=== PATIENT | female | born 1980 | race American Indian/Alaskan Native ===

== ENCOUNTER → 2018-07-31 14:00 | Outpatient (CLI) | payer SELFPAY | DX: Z23 Encounter for immunization (principal) | CPT/HCPCS: 90471; 90686 ==

== ENCOUNTER 2021-02-23 20:18 | Emergency (ER) | payer BC, SELFPAY ==
[2021-02-23 21:36] VITALS: BP 137/73; PULSE 66; RESP 20; TEMP 36.6; O2SAT 97
--- NOTE | 2021-02-23 21:40 | DI.RAD.S_ITS ---
PROCEDURE: XR ELBOW LT MIN 3V INDICATIONS: fall TECHNIQUE: 3 views of the elbow were acquired. COMPARISON: None. FINDINGS: Bones: No fractures or dislocations. No suspicious bony lesions. Soft tissues: No elbow joint effusion. No suspicious soft tissue calcifications. IMPRESSION: No fracture. No osseous lesion. If symptoms and/or clinical suspicion for pathology persists, further assessment with repeat radiographs (7-10 days) or advanced imaging (e.g. CT, MRI or bone scan) should be considered. Dictated by: Yvette Machado MD, PhD on 02/23/2021 at 21:55 Approved by: Yvette Machado MD, PhD on 02/23/2021 at 21:55
--- NOTE | 2021-02-23 23:36 | ED_ITS ---
HPI - Extremity Injury (Upper) General Chief Complaint: Extremity Injury, Upper Stated Complaint: LEFT ELBOW INJURY Time Seen by Provider: 02/23/21 23:35 Source: patient Mode of arrival: Ambulatory Limitations: no limitations History of Present Illness HPI narrative: Patient is a 40-year-old female who presents with left elbow pain after falling. She was sitting in the chair she fell over and hurt her elbow. She initially had some tingling in her hand but that has since improved. She previously had a hairline fracture in that elbow and is worried it might be broken. No other injury she did not hit her head. complaint: injury to: left and elbow Related Data Home Medications Medication Instructions Recorded Confirmed albuterol sulfate [Ventolin HFA] #0 12/12/17 prednisone #0 12/12/17 Review of Systems Review of Systems Narrative: GENERAL: Denies chills,fever HEENT: Denies throat pain RESPIRATORY: Denies dyspnea, cough, wheezing CARDIOVASCULAR: Denies chest pain, palpitations GASTROINTESTINAL: Denies nausea, vomiting MUSCULOSKELETAL: See HPI SKIN: No rash, no laceration, no pruritus NEUROLOGIC: Denies weakness, dizziness, headache, numbness 8 point review of systems is negative except for those stated above and HPI Exam Initial Vital Signs Initial Vital Signs: Vital Signs Temperature 97.9 F 02/23/21 21:36 Pulse Rate 66 02/23/21 21:36 Respiratory Rate 20 02/23/21 21:36 Blood Pressure 137/73 02/23/21 21:36 Pulse Oximetry 97 02/23/21 21:36 GENERAL: Well-appearing, well-nourished and in no acute distress. CARDIOVASCULAR: peripheral pulses in tact, cap refill <2 sec RESPIRATORY: No respiratory distress, speaks in full sentences without difficul ty EXTREMITIES: Normal range of motion, no clubbing or edema. Neurovascularly intact Left upper extremity no obvious bony deformity no pain on the left than on able to flex extend supinate and pronate. NEUROLOGICAL: Cranial nerves II through XII grossly intact. Normal gait and speech. SKIN: Warm, dry, no petechiae, no rashes or lesions. Course Orders Ordered: ED Orders 02/23/21 21:40 XR elbow LT min 3V Stat Vital Signs Vital signs: Vital Signs - 8 hr 02/23/21 21:36 Temperature 97.9 F Pulse Rate 66 Respiratory Rate 20 Blood Pressure 137/73 Pulse Oximetry 97 MDM - Extremity Injury (Upper) Imaging Data Extremity x-ray #1: Radiologist's Impression: PROCEDURE: XR ELBOW LT MIN 3V INDICATIONS: fall TECHNIQUE: 3 views of the elbow were acquired. COMPARISON: None. FINDINGS: Bones: No fractures or dislocations. No suspicious bony lesions. Soft tissues: No elbow joint effusion. No suspicious soft tissue calcifications. IMPRESSION: No fracture. No osseous lesion. If symptoms and/or clinical suspicion for pathology persists, further assessment with repeat radiographs (7-10 days) or advanced imaging (e.g. CT, MRI or bone scan) should be considered. Dictated by: Yvette Machado MD, PhD on 02/23/2021 at 21:55 Approved by: Yvette Machado MD, PhD on 02/23/2021 at 21:55 Discharge Plan Departure Patient Disposition: Home Clinical Impression: Left elbow contusion Instructions: DI for Elbow Pain Activity Restrictions/Additional Instructions: *You have been diagnosed with left elbow contusion *What to do: X-ray is negative at this time. Elevate ice if needed *Continue to take medications as directed Ibuprofen 600 mg every 6 hours if needed for [id number] pain *Follow up with your primary care provider in 2-3 days *Return to ER if you should have increasing pain numbness tingling or weakness or any new, worsening or concerning symptoms Prescriptions: No Action prednisone 20 MG tablet Qty: 0 RF: 0 albuterol sulfate [Ventolin HFA] 90 MCG/PUFF HFA aerosol inhaler Qty: 0 RF: 0
== END 2021-02-23 23:48 | disposition home or self-care (01) ==
PROVIDERS: Emergency Provider Emergency Medicine
DX: S50.02XA Contusion of left elbow, initial encounter (principal); W19.XXXA Unspecified fall, initial encounter
CPT/HCPCS: 73080; 99281; 99283

== ENCOUNTER → 2023-05-30 12:28 | Outpatient (CLI) | payer MEDICAID, SELFPAY | PROVIDERS: Visit Provider Nurse Practitioner Family | DX: R30.0 Dysuria (principal) | CPT/HCPCS: 81002; 87086 ==

== ENCOUNTER → 2023-10-15 14:05 | Outpatient (CLI) | payer MEDICAID, SELFPAY ==
[2023-10-15 14:12] LABS: Urine Volume 10mL (spun)
[2023-10-15 15:20] LABS: Appearance Urine UA CLEAR; Bilirubin Urine UA NEGATIVE (NEGATIVE); Color Urine UA YELLOW; Glucose Urine UA NEGATIVE (Negative); Ketones Urine UA NEGATIVE (NEGATIVE); Leukocyte Esterase Urine UA NEGATIVE (NEGATIVE); Nitrite Urine UA NEGATIVE (Negative); Occult Blood Urine UA TRACE-INTACT (Negative); Protein Urine UA NEGATIVE (Negative); Specific Gravity Urine UA 1.025 (1.000-1.035); Urobilinogen Urine UA 0.2 E.U./dL (0.2)
[2023-10-15 15:21] LABS: pH Urine UA 5.5 (4.5-8.0)
[2023-10-15 15:30] LABS: Bacteria Urine Moderate (10-30); Culture Indicated Urine Specimen Cultured; RBC Urine 0-1/HPF (0-5/HPF); Squamous Epithelial Cell Urine 0-1 /HPF (0-5/HPF); WBC Urine 10-30/HPF (0-5/HPF)
== END ==
PROVIDERS: Visit Provider Physician Assistant
DX: R30.0 Dysuria (principal)
CPT/HCPCS: 81001; 81002; 87077; 87086; 87186